=== PATIENT | male | born 1995 ===

== ENCOUNTER 2017-03-07 20:00 | Emergency (ER) ==
--- NOTE | 2017-03-08 08:48 | EKG REPORT ---
SEVERITY:- NORMAL ECG - SINUS RHYTHM : Confirmed by: Natalia Alanis MD 08-Mar-2017 08:47:43
== END 2017-03-07 21:25 | disposition left against medical advice (07) ==
LOC: ER 20:00
DX: Z53.21 Procedure and treatment not carried out due to patient leaving prior to being seen by health care provider (principal)
CPT/HCPCS: 93005; 93010